=== PATIENT | male | born 1975 | race Caucasian/White ===

== ENCOUNTER 2018-03-29 08:17 | Day surgery (SDC) | payer OTHER ==
[2018-03-26 13:32] VITALS: BMI 27.3
[2018-03-29 08:42] VITALS: TEMP 98.2
[2018-03-29] MEDS ORDERED: MIDAZOLAM HCL 2 MG/2 ML SINGLE DOSE VIAL ONE ×2 (09:52)
[2018-03-29] MEDS ORDERED: DEXAMETHASONE SOD PHOSPHATE 4 MG/1 ML VIAL ONE (10:13)
--- NOTE | 2018-03-29 10:31 | OP ---
Operative Note - Note: Operative Date: 03/29/18 Pre-Operative Diagnosis: Right Kidney stones Operation: Right renal ESWL Findings: 5mm Right kidney mid pole stone Post-Operative Diagnosis: Same as Pre-op Surgeon: Jason Calabrese (no intraoperative complication) Anesthesia: Fractional Estimated Blood Loss (mls): 0 (no intraoperative oozing) Operative Report Dictated: Yes
[2018-03-29 14:16] VITALS: BP 132/80; PULSE 56
--- NOTE | 2018-03-29 18:39 | OP ---
DATE OF OPERATION: 03/29/2018 PREOPERATIVE DIAGNOSIS: Right renal stone. POSTOPERATIVE DIAGNOSIS: Right renal stone. PROCEDURE: Right extracorporeal shock wave lithotripsy. ATTENDING: Janes Ji MD ANESTHESIA: Fractional. DESCRIPTION OF OPERATION: The patient was brought in the operating room and placed in supine position on the operating room table. Ultrasonography and fluoroscopy were performed. A 5-mm right mid-pole stone was identified. At this point, anesthesia and preoperative antibiotics were administered. Shock wave lithotripsy was then started; 2500 impulses at 17 joules of power were administered to the stone with excellent fragmentation under real-time ultrasonography and fluoroscopy. No complications were noted. The disposition of the patient was to the recovery room. JANES JI M.D. [id number]
== END 2018-03-29 14:30 | disposition home or self-care (01) ==
LOC: JASU-SURG 08:17
PROVIDERS: ATTEND Urology
PROC: 0TF3XZZ Fragmentation in Right Kidney Pelvis, External Approach (ICD-10-PCS; principal; 2018-03-29 09:30)
DX: N20.0 Calculus of kidney (principal)

== ENCOUNTER 2018-04-04 11:41 | Emergency (ER) | payer OTHER ==
[2018-04-04 11:59] VITALS: BP 134/79; PULSE 65; TEMP 98.1; BMI 27.3
--- NOTE | 2018-04-04 12:12 | PDOC ---
History of Present Illness - General Chief Complaint: Shortness of Breath Stated Complaint: Shortness of Breath Time Seen by Provider: 04/04/18 12:11 - History of Present Illness Initial Comments: 04/04/18 12:29 Chari Douglas is a 42yo man with a PMH of kidney stones with laser lithotripsy on 04/01/18 who presents today with shortness of breath. He reports that after the kidney procedure, he felt that his "breath completely went away" at about 11pm on . He was able to stay home through the night but made an appointment for follow-up with his renal physician. Mr Douglas states that the doctor told him that it might be a muscle contraction. He was prescribed azithromycin, which he has been taking. However, he reports that overnight he was unable to sleep because he felt that he was suffocating. He describes a feeling of tightness in his anterior chest. He denies any pain aside from slight discomfort in his right flank following the kidney stone procedure; this has improved significantly over the past few days. Mr Douglas also denies any fevers, nausea/vomiting, nasal congestion, or sweating. He does endorse a subjective feeling of weakness in his right arm and leg but has not had any difficulty moving his limbs, lifting items, or walking. Mr Douglas states that he had asthma as a baby, but he was never hospitalized and never required an inhaler. He has not had any asthma symptoms since he was very young. He does report a family history of asthma and allergies. Past History - Past Medical History Allergies/Adverse Reactions: Allergies Allergy/AdvReac Type Severity Reaction Status Date / Time No Known Drug Allergies Allergy Verified 04/04/18 11:55 Home Medications: Ambulatory Orders Albuterol Sulfate Inhaler - [Ventolin HFA Inhaler -] 1 - 2 inh PO Q4H PRN #1 inhaler 04/04/18 Azithromycin 500 mg PO DAILY 04/04/18 Anemia: No Asthma: No Cancer: No Cardiac Disorders: No CVA: No COPD: No CHF: No Dementia: No Diabetes: No GI Disorders: No Disorders: Yes (KIDNEY STONES) HTN: No Hypercholesterolemia: No Liver Disease: No Seizures: No Thyroid Disease: No - Suicide/Smoking/Psychosocial Hx Smoking History: Never smoked Have you smoked in the past 12 months: No Hx Alcohol Use: Yes (SOCIAL) Drug/Substance Use Hx: No Substance Use Type: None Hx Substance Use Treatment: No Review of Systems - Review of Systems Comments:: General: No fevers, no chills, no weight or appetite change, no malaise HEENT: No changes in vision, no changes in hearing, no congestion, no sore throat CV: No chest pain, no palpitations, no LE edema. +Chest tightness Pulm: +SOB. No cough, no wheezing GI: No nausea or vomiting, no change in bowel habits, no melena : No frequency, no urgency, no dysuria. +recent kidney stone removal Musc: No back pain, no joint swelling, no recent injury Skin: No rash, no lesions, no erythema Endo: No excessive thirst, no heat/cold intolerance Heme: No unusual bruising or bleeding, no swollen glands Neuro: No syncope, no numbness/tingling, no focal weakness Vasc: No claudication Psych: No recent change in mood, no SI or HI *Physical Exam - Vital Signs Last Vital Signs Temp Pulse Resp BP Pulse Ox 98.1 F 65 18 134/79 99 04/04/18 11:52 04/04/18 11:52 04/04/18 11:52 04/04/18 11:52 04/04/18 11:52 - Physical Exam Comments: General: Comfortable, no acute distress HEENT: PERRL, EOMI, MMM, voice normal, normal neck ROM Cards: RRR, no murmur appreciated Pulm: Comfortable on room air, clear to auscultation bilaterally Abd: Soft, nontender, nondistended Ext: Atraumatic. No LE edema. ROM intact. Strength 5/5 and equal bilaterally in hands, elbows, shoulders, hips, knees, and feet. Vasc: Extremities WWP. Palpable radial and pedal pulses bilaterally Skin: No rash, no lesions, no abrasions or lacerations Neuro: A&Ox3, CN grossly intact, normal speech, motor/sensory grossly intact and symmetric Psych: Mood appropriate to situation Medical Decision Making - Medical Decision Making 04/04/18 12:39 Chari Douglas is a 42yo man with a remote history of asthma, asymptomatic for years, and recent kidney stone s/p laser lithotripsy 3 days ago who presents with SOB since night. 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 - Exam benign, vital signs normal. Satting well on room air. Lungs clear to auscultation bilaterally with good air movement noted - No open surgeries, recent travel, h/o CA, orthopedic trauma that would be concerning for PE - No chest pain, nausea/vomiting, diaphoresis, or comorbidities that would suggest cardiac pathology. Will check EKG to r/o - CXR for evaluation - Given personal and family history of asthma along with complaint of chest tightness and SOB, will give duoneb for symptoms 04/04/18 13:45 - Re-evaluated, reports feeling improved currently. - On questioning again, Mr Douglas reports that his symptoms only lasted several minutes, up to 20 minutes on one occasion. He also reports having been to the ED in [place] on night prior to seeing his physician on Thursday. He states they did some blood tests and told him everything was fine - EKG completed, bradycardic to 48 but asymptomatic. HR was 65 on arrival, and NSR when examined. - CXR also completed. Reviewed, no focal consolidation. Poor inspiratory effort but no pneumonia, effusion, pneumothorax noted. Radiology report pending. - As Mr Douglas' symptoms improved and EKG, CXR are unconcerning, will discharge home pending CXR radiology report. Should follow up with a PCP. Will refer to resident clinic. Seen and discussed with Dr Kay. *DC/Admit/Observation/Transfer Diagnosis at time of Disposition: Shortness of breath - Discharge Dispostion Disposition: HOME Condition at time of disposition: Good Decision to Admit order: No - Prescriptions Prescriptions: Albuterol Sulfate Inhaler - [Ventolin HFA Inhaler -] 1 - 2 inh PO Q4H PRN #1 inhaler PRN Reason: Short Of Breath/Wheezing - Referrals Referrals: Arsalan Heller [Primary Care Provider] - Darren Dent MD [Staff Physician] - - Patient Instructions Printed Discharge Instructions: DI for Shortness of Breath Additional Instructions: Discharge Instructions: - You were seen in the ED for shortness of breath - You had tests to evaluate your heart and lungs, and there was nothing abnormal found on the tests. There does not appear to be anything serious wrong with your heart or lungs - You also had a breathing treatment, and your symptoms improved by the time you went home - It is recommended that you establish care with a primary physician. Try to make an appointment within the next week. You have been referred to the [facility] resident clinic. - If you have shortness of breath that does not go away, faint or lose consiousness, develop a cough, fever, or shaking chills or have chest pain, please return to the ED or seek immediate medical attention. - Post Discharge Activity
--- NOTE | 2018-04-04 12:23 | PDOC ---
Attending Attestation - Resident Resident Name: Armida Hauser - ED Attending Attestation I have performed the following: I have examined & evaluated the patient, The case was reviewed & discussed with the resident, I agree w/resident's findings & plan, Exceptions are as noted - HPI HPI: 04/04/18 15:46 The patient is a 42 year old male, with a significant past medical history of childhood asthma, who presents to the emergency department with, shortness of breath. As per patient, he had a kidney procedure 4 days ago and that night he began to feel short of breath and began to shake. He went to an ER in [place] that night where he received lab work and was discharged. He went to see his renal surgeon who told him it was possibly amuscle contractions. Today, he reports his symptoms returned and he felt as if he was suffocating, last night and it was hard to sleep. Pt states the sypmtoms resolved after a few minutes. He is currently asymotatmic. He denies any recent fevers, chills, headache or dizziness. He denies any recent nausea, vomit, diarrhea or constipation. He denies any recent chest pain. He denies any recent dysuria, frequency, urgency or hematuria. Allergies: NKA Social History: Nonsmoker. Denies EtOH use and recreational drug use. Primary Care Physician: Dr. Heller - Physicial Exam PE: 04/04/18 15:48 GENERAL: The patient is awake, alert, and fully oriented, Nontoxic - in no acute distress. HEAD: Normocephalic, atraumatic. NECK: Normal range of motion, supple LUNGS: Breath sounds equal, clear to auscultation bilaterally. No wheezes, no rhonchi, no rales. HEART: Regular rate and rhythm, normal S1 and S2 without murmur, rub or gallop. ABDOMEN: Soft, nontender, No guarding, no rebound. . No CVA tenderness EXTREMITIES: Normal range of motion, no edema. NEUROLOGICAL: No facial assymetry, Normal speech, PSYCH: Normal mood, normal affect. SKIN: Warm, Dry, normal turgor - Medical Decision Making 04/04/18 12:23 42y M x/p kidney stone procedure on , pt complaint of episode sob at night, lasting for minutes associated with chest tightness. Pt notes that he was fine on , in the evening he flt some ches ttightness and sob for approx 20 min when he was going to bed, symptoms resolved spontaneously - he had gone to another ED fore valution had blood work done and was d/c. had another episode yesterday. denies any fever/chills, cough, hempptysis, leg swelling, nv, back pain. currently asypmtomatic. no recent exertional symptoms suspect msk cause doubt PE/disseciton/acs based on short episodic nature Will check EKG, chest x-ray Currently asymptomatic If negative will discharge with PMD follow-up 04/04/18 15:46 Heart Score/ECG Review - ECG Impressions Comment:: 04/04/18 14:57 Twelve-lead EKG was performed and reviewed by me. There is normal sinus rhythm with a rate of 48 Normal R wave progression Normal axis
[2018-04-04] MEDS ORDERED: ALBUTEROL SO4 2.5/IPRATROPIUM 0.5 INH SOL 3 ML VIAL.NEB. NEB ONE ×2 (12:26→12:48)
--- NOTE | 2018-04-04 20:02 | EKG ---
Test Reason : Blood Pressure : / mmHG Vent. Rate : 048 BPM Atrial Rate : 048 BPM P-R Int : 150 ms QRS Dur : 100 ms QT Int : 416 ms P-R-T Axes : 030 -09 021 degrees QTc Int : 371 ms SINUS BRADYCARDIA MINIMAL VOLTAGE CRITERIA FOR LVH, MAY BE NORMAL VARIANT BORDERLINE ECG NO PREVIOUS ECGS AVAILABLE Confirmed by JACIEL RANGEL MD ([id number]) on 04/04/2018 8:02:22 PM Referred By: Confirmed By:JACIEL RANGEL MD
== END 2018-04-04 14:29 | disposition home or self-care (01) ==
LOC: JER 11:41
PROC: 3E0F7GC Introduction of Other Therapeutic Substance into Respiratory Tract, Via Natural or Artificial Opening (ICD-10-PCS; principal; 2018-04-04)
DX: R06.02 Shortness of breath (principal)
CPT/HCPCS: 71046-TC-FY; 93005; 93010; 99283-25; J7620